=== PATIENT | male | born 1960 | race Caucasian/White ===

== ENCOUNTER 2019-08-03 13:29 | Inpatient (IN) | payer OTHER, BC ==
[~2019-08-03] VITALS: Ht 177.8 cm; Wt 76.4 kg
[2019-08-03] VITALS (13 sets, daily range): BP systolic 114–166; BP diastolic 62–99
[~2019-08-03 13:29] MED LIST: BAYER CHEWABLE81 MG PO; CELEXA20 MG PO; DONEPEZIL HCL 55 M1 PO; LIPITOR 20 MG T20 M1 PO; PRILOSEC 20 MG20 MG PO; RITALIN20 MG PO
[2019-08-03 14:13] LABS: ABSOLUTE NEUTROPHILS 7.1 thou/uL (1.4-8.2); BASOPHILS 0.4 % (0.0-2.0); EOSINOPHILS 2.8 % (0.0-3.0); HEMATOCRIT 41.5 % (42.0-52.0); HEMOGLOBIN 13.8 gm/dL (14.0-18.0); LYMPHOCYTES 11.6 % (24.0-44.0); MCH 29.8 pg (26.0-34.0); MCHC 33.2 g/dL (28.0-37.0); MCV 89.8 fL (80.0-100.0); MONOCYTES 4.1 % (1.0-8.0); PLATELET COUNT 300 thou/uL (150-400); POLYS 81.1 % (36.0-66.0); RBC 4.62 mil/uL (4.50-6.00); RDW 13.8 % (10.5-14.5); WBC 8.7 thou/uL (4.0-11.0)
[2019-08-03 14:18] LABS: URINE BILIRUBIN NEGATIVE (Negative); URINE BLOOD NEGATIVE (Negative); URINE CLARITY CLEAR; URINE COLOR YELLOW; URINE GLUCOSE-RANDOM* NEGATIVE (Negative); URINE KETONES NEGATIVE (Negative); URINE LEUKOCYTES-REFLEX NEGATIVE (Negative); URINE NITRITE-REFLEX NEGATIVE (Negative); URINE PROTEIN (DIPSTICK) TRACE (Negative); URINE SPECIFIC GRAVITY >= 1.030 (1.005-1.035); URINE UROBILINOGEN 0.2 E.U./dl (0.2-1.0)
[2019-08-03 14:19] LABS: BE(vivo) -0.3 mmol/L (-2 to +3); HCO3 22.7 mmol/L (22.0-26.0); pH 7.456 (7.360-7.450); sO2 96.8 % (92.0-98.0)
[2019-08-03 14:21] LABS: ANION GAP 15 mmol/L (7-16); BUN 11 mg/dL (7-18); CALCIUM 9.2 mg/dL (8.5-10.1); CHLORIDE 102 mmol/L (98-107); CO2 22 mmol/L (21-32); CREATININE 0.9 mg/dL (0.7-1.3); GLUCOSE 117 mg/dL (74-106); POTASSIUM 3.9 mmol/L (3.5-5.1); SODIUM 139 mmol/L (136-145)
[2019-08-03 14:24] LABS: APTT 22.2 Seconds (24.5-32.8); PROTIME 10.5 Seconds (9.3-11.4)
[2019-08-03 14:30] LABS: ALBUMIN 3.3 g/dL (3.4-5.0); SGOT 25 U/L (15-37); SGPT 22 U/L (30-65); TOTAL BILIRUBIN 0.6 mg/dL (<0.1-1.0); TROPONIN-I <0.06 ng/mL (<0.06)
[2019-08-03] MEDS ORDERED: LIPITOR 20 MG T20 M1 PO ×2 (14:38→15:34)
[2019-08-03] MEDS ORDERED: DULCOLAX10 MG RECTAL (14:40)
[2019-08-03] MEDS ORDERED: ARICEPT10 M1 PO (14:50)
[2019-08-03] MEDS ORDERED: ERYTHROMYCIN E3.5 G3 OPHTHALMIC (14:55)
[2019-08-03] MEDS ORDERED: LIDODERM1 EACH TOP (14:56)
[2019-08-03] MEDS ORDERED: IPRAT-ALBUT 0.5-3 ML INH (14:56)
[2019-08-03] MEDS ORDERED: NAMENDA 10 MG T10 MG PO (14:57)
[2019-08-03] MEDS ORDERED: MELATONIN3 M1 PO (14:57)
[2019-08-03] MEDS ORDERED: MUCINEX600 MG PO (14:57)
[2019-08-03] MEDS ORDERED: MIRALAX119 GM PO (15:01)
[2019-08-03] MEDS ORDERED: QUETIAPINE FUMA50 MG PO (15:02)
[2019-08-03] MEDS ORDERED: VITAMIN B-1100 M2 PO (15:04)
[2019-08-03] MEDS ORDERED: ROBITUSSIN-COU237 ML PO (15:04)
[2019-08-03] MEDS ORDERED: TRAMADOL 50 MG50 MG PO (15:09)
[2019-08-03] MEDS ORDERED: ZYRTEC10 M5 PO (15:33)
[2019-08-03] MEDS ORDERED: HALOPERIDOL 1 MG1 MG PO (15:35)
--- NOTE | 2019-08-03 19:19 | NUR ---
1845 PT RECEIVED FROM ED HERE AT THE BEDSIDE, SETTLED AND REPORTED OFF TO PM RN.
[2019-08-04] VITALS (12 sets, daily range): BP systolic 104–142; BP diastolic 53–89
--- NOTE | 2019-08-04 06:10 | NUR ---
PATIENT ALERT TO SELF ONLY, CONSTANT RE-ORIENTATION NEEDED. PATIENT AGITATED DURING BEGINNING OF THE SHIFT, ROCKS SELF BACK AND FOWARD WITH LEGS ELEVATED. PATIENT REASSURED, HOME MEDICATION ORDERED AND PATIENT RESTED THROUGHOUT THE NIGHT. ON 2L NASAL CANNULA, O2 SAT REMAINED ABOVE 92%, NON-PRODUCTIVE COUGH NOTED. PRESSENT AT THE BEDSIDE TO ANSWER ADMISSION QUESTIONS. STATED PATIENT TRIPPED AND LANDED ON PIANO FACE FRONT WHERE HE RECIEVED SURGERY IN THE PAST WITH RIGHT FACIAL PLATES. PATIENT SEES NEUROLOGIST AT , DEMENTIA NOTED TO BE EXACERBATED WITH INCREASED ROCKING MOVEMENTS AFTER THE PIANO INCIDENT. PATIENT HAS PEG TUBE IN PLACE, STATED IT HASN'T BEEN USED IN 2 DAYS AND PATIENT WAS EATING REGULAR FOOD. CURRENTLY NPO, AWAITING SPEECH EVALUATION. CHEST X-RAY COMPLETED THIS MORNING, CONTINUED IV ANTIBIOTICS. NO SIGN OF ACUTE DISTRESS NOTED AT THIS TIME. WILL CONTINUE TO MONITOR.
[2019-08-04 06:12] LABS: HEMATOCRIT 39.3 % (42.0-52.0); HEMOGLOBIN 12.9 gm/dL (14.0-18.0); MCH 29.3 pg (26.0-34.0); MCHC 32.8 g/dL (28.0-37.0); MCV 89.4 fL (80.0-100.0); RBC 4.4 mil/uL (4.50-6.00); RDW 13.7 % (10.5-14.5); WBC 12.4 thou/uL (4.0-11.0)
[2019-08-04 06:19] LABS: CALCIUM 9.2 mg/dL (8.5-10.1); CREATININE 0.9 mg/dL (0.7-1.3); POTASSIUM 3.5 mmol/L (3.5-5.1)
--- NOTE | 2019-08-04 18:33 | NUR ---
PT ASSESSMENTS DOCUMENTED. VSS. VERY RESTLEST, ANXIOUS AND CONFUSED. PER THIS IS BASELINE. PRN MEDICATIONS GIVEN. SITTER INITIATED FOR SAFETY DUE TO IMPULSIVENESS AND INABILITY TO FOLLOW COMMANDS. AND DAUGHTERS AT BEDSIDE THROUH OUT THE DAY. IV ABX. ABLE TO TITRATE OFF OXYGEN. MAINTAINING SATS. MULTIPLE EPISDOES OF INCONTINANCE. ORDERS FOR MST TRANSFER.
[2019-08-05] VITALS: BP 114/75
--- NOTE | 2019-08-05 04:32 | NUR ---
ASSESSMENTS CHARTED. MEDS GIVEN CHARTED. PATIENT REMAINS RESTLESS WITH NON-PRODUCTIVE COUGH. VISUAL HALLUCINATIONS ALERT TO NAME. SINUS ANNE-MARIE TO SINUS TACH ON TELEMETRY. LUNGS ARE COARSE ON ROOM AIR. INCONTINENT OF BLADDER, SCROTAL REDNESS, BARRIER CREAM APPLIED. IV FLUIDS RUNNING DURING SHIFT. SITTER IN ROOM WITH PATIENT. FALL PRECAUTIONS IN PLACE. PLAN OF CARE IS TO CONTINUE ANTIBIOTIC TREATMENT.
[2019-08-05 06:51] LABS: CALCIUM 9.1 mg/dL (8.5-10.1); CREATININE 0.6 mg/dL (0.7-1.3)
[2019-08-05 08:38] VITALS: BP 139/65
[2019-08-05 16:01] VITALS: BP 140/74
--- NOTE | 2019-08-05 19:32 | NUR ---
0800 PT PERSISTANT COUGH-AISSATOU SAN-ORDER RECEIVED. AFTER PROMETHAZINE, CODIENE, FENTANYL, ATIVAN AND LIDOCAINE INH-PT ABLE TO SLEEP FROM [id number] WITH COUGH CONTROLLED. 1600 PT INCONTINENT OF URINE, PT TURNED CLEAN, RN NOTICED PEG TUBE IN BED. REQUEST IT BE LEFT OUT UNLESS NECESSARY, WANTS NURSE TO PAGE AND BEN MEDS TO BE CRUSHED AND GIVEN WITH APPLESAUCE. ORDERS RECEIVED FROM TRACIE TO GIVE MEDS CRUSHED WITH APPLESAUCE. INTERMITTENT AGGITATION THROUGHOUT DAY-EASILY REDIRECTED. AGREES WITH CURRENT POC-UPDATED ON ALL MEDS AND RESULTS.
[2019-08-05 19:57] VITALS: BP 140/52
[2019-08-06] VITALS: BP 127/49
[2019-08-06 04:06] VITALS: BP 151/65
[2019-08-06 05:49] LABS: CALCIUM 8.9 mg/dL (8.5-10.1); CREATININE 0.7 mg/dL (0.7-1.3)
[2019-08-06 05:50] LABS: POTASSIUM 3.8 mmol/L (3.5-5.1)
[2019-08-06 08:01] VITALS: BP 149/56
--- NOTE | 2019-08-06 10:10 | NUR ---
Nutrition: pt admit to ICU with respiratory distress. Seen due to NPO day 3 and hx of PEG which has been pulled out. requests not replacing as pt had been eating regular foods 2 days prior to admit. Hx PEG due to need for oromaxillofacial surgery/dysphagia per chart. No weight hx available. ST is evaluating pt this am. Hx dementia and per rounds currently confused and impulsive. Will follow for results of ST cannon.
--- NOTE | 2019-08-06 15:43 | NUR ---
1312 pt in bed, 1:1 sitter with , yelling out. chart review. will reach out to . cm spoke with pt , he been in and out of [facility] since may. he was independent prior to may, he was able to stay home by him self, and would walk the dogs. has peg tub, walker and wheel chair. rehab at [facility]. he will return [facility] rehab when dr are ready to dc. thank you for calling"/becky rodriguez [phone]
[2019-08-06 16:00] VITALS: BP 149/62
--- NOTE | 2019-08-06 17:24 | NUR ---
PT RESTED IN BED TOSSING AND TURNING AND WITH INCOMPREHENSIBLE SOUNDS. PT REMAINS I TO 1 SITTER. PT HAD FREQUENT WET ADDISON. SPOUSE AT BEDISDE AT THIS TIME AND PT IS PROGRESSING TOWARDS GOALS.
[2019-08-06 19:11] VITALS: BP 172/86
[2019-08-06 20:54] VITALS: BP 165/69
[2019-08-07 03:16] VITALS: BP 189/60
--- NOTE | 2019-08-07 05:36 | NUR ---
Assumed pt care at 08/06 @ 1900. Pt initially agitated, occasionally combative and consistently attempting to sit up out of bed, swinging legs over sides. Medicated per EMAR and pt has slept well for some periods. HR initially low 100s, 50s while sleeping. Has remained on RA with adequate SPO2. Took HS meds with honey thick liquids by the spoonful, coughing noted after small spoonfulls sitting up right in bed. PEG site ALEKSANDR with no drainage noted. Plan for possible PEG placement today. Bed low and locked with bed alarm on and sitter at bedside for pt safety. Progressing slowly towards goals.
[2019-08-07 07:45] VITALS: BP 189/60
--- NOTE | 2019-08-07 08:51 | NUR ---
SCD'S REMAIN OFF,PT CONSTANT MOTION,WILL NOT KEEP WRAPS ON WHEN APPLIED.COVERED W LOVENOX.SEVERLY AGITATED.--VW
--- NOTE | 2019-08-07 10:29 | NUR ---
Nutrition: If PEG tube replaced, REC jevity 1.5 to run at 55 mL/hr goal rate.
[2019-08-07 13:37] VITALS: BP 156/82
--- NOTE | 2019-08-07 14:56 | NUR ---
FAXED CLINICAL UPDATE TO [facility] SPOKE WITH SHANTHI IN ADM SHE RECEIVED UPDATE. DP TO FOLLOW.
[2019-08-07 16:48] VITALS: BP 164/72
--- NOTE | 2019-08-07 18:20 | NUR ---
PATIENT ADMITTED TO ROOM AT THIS TIME. AT BEDSIDE.. NOTED TO BE RESTLESS IN BED. NOT EASILY REDIRECTED. ORDERS FOR ZYPREXA NOTED. WILL DISCUSS WITH DR SANTIAGO IF IM ZYPREXA WILL BE PREFERABLE. WILL CONT WITH PLAN OF CARE.
[2019-08-07 20:19] VITALS: BP 136/73
--- NOTE | 2019-08-07 23:37 | NUR ---
PT REMAINS ON 1 ON . PT RESTING IN BED, MAKING INTERMITTENT GROANING NOISES AND COUGHING INTERMITTENTLY. PT RESTLESS IN BED ROCKING UP AND BACK, KICKING LETS OUT AND IN. KEEPS EYES CLOSED. BUT ABLE TO FOLLOW VERBAL DIRECTIONS WHEN ASKED TO OPEN EYES OR LOWER LEGS. IVF INTACT. REMAINS INCONTINENT. NO VERBALIZATIONS. HR IN 100S UNTIL ASLEEP THEN DOWN TO 50S.
[2019-08-08 00:20] VITALS: BP 123/72
[2019-08-08 03:48] VITALS: BP 130/92
--- NOTE | 2019-08-08 06:43 | NUR ---
PT AWAKENED RESTLESS, KICKING LEGS , SITTING UP TRYING TO GET OUT OF BED, CRYING AND MOANING, ASKING FOR CANDY, PT IS NPO. VERBAL REDIRECTION NOT EFFECTIVE, DISTRACTION NOT EFFECTIVE, PRN PROVIDED.
[2019-08-08 09:45] VITALS: BP 156/74
--- NOTE | 2019-08-08 12:21 | NUR ---
SW reviewed chart and spoke with nursing and attending physician. Pt was transferred to from ICU. Pt has 1:1 sitter at bedside. Psych following. Pt to have peg tube replaced today. Plan is for pt to discharge back to [facility] once sitter has been discontinued for 24 hours. SW is following to assist as needed with discharge planning.
--- NOTE | 2019-08-08 12:32 | EKG ---
[facility] [place] [address] ELECTROCARDIOGRAM REPORT Name: HOLGER GLORIA Room #: 361-P [facility] IN M.R.#: [id number] Admission: 08/03/19 Attend Phys: Usama Soto MD Discharge: 08/11/19 Date of : 58 Report #: [id number] THIS REPORT FOR: cc: Rogelio Sandoval David J. DO Lundgren, Craig H. MD [facility] THIS REPORT FOR: //name// [facility] ED Test Date: 2019-08-03 Test Time: 14:00:10 Pat Name: HOLGER GLORIA Department: Room: [facility] Gender: M Wireless Manager: SHERINE : 1960 Requested By: Isma Hansen Order Number: [id number] MD: Jasvir Cabrera Measurements Intervals [place] Rate: 110 P: 77 CT: 130 QRS: -2 QRSD: 111 T: 70 QT: 324 QTc: 439 Interpretive Statements Sinus tachycardia RSR' in V1 or V2, right VCD No previous ECG available for comparison Electronically Signed On 08-03-2019 17:32:46 ROUGH AND TRUING MACHINE OPERATOR by Jasvir Cabrera [email or web address] <ELECTRONICALLY SIGNED> By: Jasvir Cabrera MD, FACC 08/03/19 1732 1400 1400 Jasvir Cabrera MD, [facility] /EPI
[2019-08-08 15:33] VITALS: BP 153/99
--- NOTE | 2019-08-08 18:30 | NUR ---
PATIENT HAD NG TUBED REPLACED IN IR THIS AFTERNOON. CALLED CUSTODIAL TO SEE WHAT KIND OF FEEDING HE WAS ON. NO ONE ANSWERED AFTER THREE TRIES. ORDERS PUT IN FOR DIETITIAN TO START TUBE FEEDS IN AM. CONT ON 1:1 HE KEEPS ROLLING IN THE BED FROM SIDE TO SIDE AND QUIT AGITATIVE. WILL CONT WITH PLAN OF CARE.
[2019-08-08 19:25] VITALS: BP 149/72
[2019-08-09 04:20] VITALS: BP 136/69
--- NOTE | 2019-08-09 06:39 | NUR ---
FOUND DIETARY ORDER FOR PT TUBE FEEDING JEVITY 1.5 AT 55ml/HR, BUT HELD OFF DUE TO BRAND NEW INSERTION OF THE PEG TUBE YESTERDAY AND SCHEDULED PROCEDURES THIS AM. WILL AWAIT ORDERS TO RESTART FEEDINGS AND. PICKLING GRADER WAS REMOVED AT 2300. PT CALLS OUT AND HAS A LOUD COUGH. PT HAD TO EPISODES OF URINE INCONTINENCE. PT NPO. VSS AND TELE SHOWS SR.
[2019-08-09 07:35] VITALS: BP 148/90
[2019-08-09 08:37] LABS: HEMATOCRIT 42.7 % (42.0-52.0); HEMOGLOBIN 13.8 gm/dL (14.0-18.0); MCH 28.6 pg (26.0-34.0); MCHC 32.3 g/dL (28.0-37.0); MCV 88.5 fL (80.0-100.0); RBC 4.82 mil/uL (4.50-6.00); RDW 13.8 % (10.5-14.5); WBC 9.8 thou/uL (4.0-11.0)
[2019-08-09 08:40] LABS: CALCIUM 9.1 mg/dL (8.5-10.1); CREATININE 0.9 mg/dL (0.7-1.3)
--- NOTE | 2019-08-09 08:58 | NUR ---
TUBE FEEDING RECS: 1) When safe to feed via PEG, recommend Jevity 1.5 @ starting rate of 25ml/hr. 2) Do NOT recommend any advancements for the first 24 hrs, given prolonged NPO status x 5-6 days. 3) After 24 hrs at 25 ml/hr, recommend gradually increasing by 15 ml q 12 hrs thereafter to Goal Rate of 55 ml/hr. 4) Recommend close monitoring of K+, Mag, Phos in initial days as pt at higher risk of refeeding syndrome. 5) Recommend 150 ml water flushes q 4 hrs, plus 30 ml before/after any meds.
--- NOTE | 2019-08-09 10:54 | NUR ---
Nutrition update: Communicated RD tube feeding recommendations to pt's RN in room this morning. See note titled 'Dietitian Recommendations' for further TF details. RN aware of low potassium per daily labs, she added on a mag level too. Mag slightly high at 2.5. Suggested checking phos next time too.
[2019-08-09 15:57] VITALS: BP 161/66
--- NOTE | 2019-08-09 16:58 | NUR ---
DESTINI reviewed chart and spoke with nursing and attending physician. Pt had peg tube placed yesterday. Tube feeding started. 1:1 sitter discontinued last night. Discharge back to [facility] is anticipated for tomorrow. DESTINI updated Elva at [facility]. DESTINI is following to assist as needed with discharge planning.
--- NOTE | 2019-08-09 18:32 | NUR ---
pt still is confused , and he cannot follow commands, pt 's vs are astble at this time, pt has medications for agitation and pain, pt is high fall risk, pt has started tube feeding 25ml/hr at 1330pm, pt is tolerated, pt's tube feeding has increased to 30ml/hr at 1730pm, pt is continuing IV abx and iv fluid,RN will report to next shift to keep eye on pt.
[2019-08-09 19:45] VITALS: BP 147/73
[2019-08-10 04:46] VITALS: BP 116/70
[2019-08-10 05:32] LABS: ALBUMIN 2.8 g/dL (3.4-5.0); CALCIUM 8.4 mg/dL (8.5-10.1); CREATININE 0.9 mg/dL (0.7-1.3); MAGNESIUM 2.3 mg/dL (1.8-2.4); PHOSPHORUS 4.1 mg/dL (2.5-4.9); POTASSIUM 3.2 mmol/L (3.5-5.1); TOTAL BILIRUBIN 0.5 mg/dL (<0.1-1.0); TOTAL PROTEIN 6.5 g/dL (6.4-8.2)
[2019-08-10 07:35] VITALS: BP 129/102
--- NOTE | 2019-08-10 07:48 | NUR ---
PATIENT IS ADVANCING SLOWLY IN HIS CARE PLAN. VITAL SIGNS STABLE WITH NURSE NOT PERCEIVING AND NAUSEA BEHALF OF PATIENT. NURSE DID PERCEIVE ABDOMINAL PAIN ON BEHALF OF PATIENT. HE IS DISORIENTED AND AGITATED AT TIMES. BREATHING STABLE ON ROOM AIR EVIDENCED BY ASSESSMENT AND SPOT OXYGENATION CHECKS. PATIENT FREQUENTLY CHECKED AND CLEANED FOR INCONTINENCE. CONTINUE PLAN OF CARE.
[2019-08-10] MEDS ORDERED: AUGMENTIN600 MG/5 M PO (15:05)
[2019-08-10] MEDS ORDERED: LORAZEPAM 0.50.5 MG PER TUBE (15:05)
[2019-08-10] MEDS ORDERED: OMEPRAZOLE 20 M20 M1 PER TUBE (15:05)
[2019-08-10] MEDS ORDERED: DEPAKOTE 250MG250 M1 PO (15:05)
[2019-08-10] MEDS ORDERED: NEURONTIN250 MG/5 M PER TUBE (15:05)
[2019-08-10 16:11] VITALS: BP 177/89
--- NOTE | 2019-08-10 16:40 | NUR ---
DESTINI reviewed chart and spoke with nursing and attending physician. Pt is progressing towards goals for discharge. Discharge back to [facility] SN[facility] is anticipated for tomorrow. DESTINI spoke with pt's , Tita, via phone to provide update. Pt's is aware and in agreement with discharge plan. Pt's requests to speak with attending physician prior to discharge. DESTINI provided pt's 's cell phone number to attending physician. DESTINI spoke with Zulay at [facility], who states they are able to accept pt tomorrow. DESTINI faxed discharge ppwk today. Nursing to fax finalized discharge orders/summary tomorrow. Stretcher van/Ambulance transportation will need to be arranged. Nursing will need to call report. SW is available to assist should needs arise. [facility] (w/c or stretcher van)-- [facility] (Ambulance)--
[2019-08-10 19:27] VITALS: BP 134/75
--- NOTE | 2019-08-10 19:55 | NUR ---
pt still is confused, and impulsive at time, pt is high fall risk, pt is tolerated tube feeding to 55ml/hr ( goal ) , pt's vs are stable, pt may DC to SNF tomorrow, RN has called all consults for pt is ok to DC .RN has reported to next shift to keep eye on pt.
--- NOTE | 2019-08-11 02:24 | NUR ---
ASSESSMENT: PT REMAINS ALERT TIMES 1-2, CONFUSED TO PLACE, TIME AND SITUATION. DOES SAY THANK YOU, AND RESPONDS TO NAME. VSS, AFEBRILE. SR PER MONITOR. MINIMAL SUCIONING, GOOD COUGH BUT CAN'T CLEAR SECRETIONS. JEVITY INFUSING WITHOUT DIFFICULTY. POSSIBLE DC TO [facility]. TUBE PATENT AND INYTACT. SLEPY MOST OF THE NIGHT, SLOW PROGRESS, TOWARDS DC GOALS, WILL CONTINUE TO MONITOR.
[2019-08-11 04:33] VITALS: BP 138/82
[2019-08-11 07:22] VITALS: BP 95/63
[2019-08-11 10:44] LABS: ABSOLUTE NEUTROPHILS 5.2 thou/uL (1.4-8.2); BASOPHILS 0.4 % (0.0-2.0); HEMATOCRIT 39.7 % (42.0-52.0); HEMOGLOBIN 13.2 gm/dL (14.0-18.0); MCH 29.3 pg (26.0-34.0); MCHC 33.1 g/dL (28.0-37.0); MCV 88.3 fL (80.0-100.0); MONOCYTES 5.7 % (1.0-8.0); PLATELET COUNT 308 thou/uL (150-400); POLYS 66.9 % (36.0-66.0); RBC 4.49 mil/uL (4.50-6.00); RDW 13.6 % (10.5-14.5); WBC 7.7 thou/uL (4.0-11.0)
[2019-08-11] MEDS ORDERED: ZYPREXA5 MG PO (11:34)
[2019-08-11 15:40] VITALS: BP 146/90
--- NOTE | 2019-08-11 16:32 | NUR ---
ASSUMED PATIENT CARE AT 0700. AWAKE. ROCK ON THE BED. TF STOPED AT 1600. INCONTIUNE ON BED. VSS. WILL DC TO SNF AT 1700. SLOWLY TOWARDS POC GOALS.
== END 2019-08-11 17:56 | DRG 871 ==
LOC: ER 13:29 → ICU 16:21 → EROBS 16:21 → 3W 16:21 → ICU 18:38 → 3W 08-07 17:52
PROVIDERS: Emergency Medicine; Internal Medicine Pulmonary Disease; Psychiatry & Neurology Psychiatry; ADMIT Hospitalist
PROC: 0DH63UZ Insertion of Feeding Device into Stomach, Percutaneous Approach (ICD-10-PCS; principal; 2019-08-08)
DX: A41.9 Sepsis, unspecified organism (principal); J96.01 Acute respiratory failure with hypoxia; J69.0 Pneumonitis due to inhalation of food and vomit; G92 Toxic encephalopathy; E44.0 Moderate protein-calorie malnutrition; F03.91 Unspecified dementia, unspecified severity, with behavioral disturbance; K94.23 Gastrostomy malfunction; E87.6 Hypokalemia; T38.0X5A Adverse effect of glucocorticoids and synthetic analogues, initial encounter; Y83.3 Surgical operation with formation of external stoma as the cause of abnormal reaction of the patient, or of later complication, without mention of misadventure at the time of the procedure; Z91.81 History of falling; Z80.1 Family history of malignant neoplasm of trachea, bronchus and lung; Z68.24 Body mass index [BMI] 24.0-24.9, adult; Z88.2 Allergy status to sulfonamides; Z79.899 Other long term (current) drug therapy; Z87.891 Personal history of nicotine dependence; Y92.89 Other specified places as the place of occurrence of the external cause
CPT/HCPCS: 10078; 10203; 10879

== ENCOUNTER 2019-08-12 09:47 | Inpatient (IN) | payer OTHER, BC ==
[2019-08-12] VITALS (26 sets, daily range): BP systolic 92–159; BP diastolic 47–100
[~2019-08-12] VITALS: Ht 177.8 cm; Wt 75.3 kg
[~2019-08-12 09:47] MED LIST changes: +ARICEPT10 M1 PO; +AUGMENTIN600 MG/5 M PO; +DEPAKOTE 250MG250 M1 PO; +DULCOLAX10 MG RECTAL; +ERYTHROMYCIN E3.5 G3 OPHTHALMIC; +HALOPERIDOL 1 MG1 MG PO; +IPRAT-ALBUT 0.5-3 ML INH; +LIDODERM1 EACH TOP; +LORAZEPAM 0.50.5 MG PER TUBE; +MELATONIN3 M1 PO; +MIRALAX119 GM PO; +MUCINEX600 MG PO; +NAMENDA 10 MG T10 MG PO; +NEURONTIN250 MG/5 M PER TUBE; +OMEPRAZOLE 20 M20 M1 PER TUBE; +QUETIAPINE FUMA50 MG PO; +ROBITUSSIN-COU237 ML PO; +TRAMADOL 50 MG50 MG PO; +VITAMIN B-1100 M2 PO; +ZYPREXA5 MG PO; +ZYRTEC10 M5 PO
[2019-08-12 10:08] LABS: HEMATOCRIT 46.4 % (42.0-52.0); HEMOGLOBIN 15.1 gm/dL (14.0-18.0); MCHC 32.6 g/dL (28.0-37.0); PLATELET COUNT 523 thou/uL (150-400); RBC 5.21 mil/uL (4.50-6.00); RDW 13.7 % (10.5-14.5); WBC 22.4 thou/uL (4.0-11.0)
[2019-08-12 10:15] LABS: ANION GAP 15 mmol/L (7-16); BUN 10 mg/dL (7-18); CALCIUM 9.2 mg/dL (8.5-10.1); CHLORIDE 101 mmol/L (98-107); CO2 21 mmol/L (21-32); GLUCOSE 106 mg/dL (74-106); SODIUM 137 mmol/L (136-145)
[2019-08-12 10:18] LABS: POTASSIUM 4.4 mmol/L (3.5-5.1)
[2019-08-12 10:20] LABS: HCO3 18.5 mmol/L (22.0-26.0); PCO2 VENOUS 27.8 mmHg (41.0-51.0); PO2 VENOUS 45.8 mmHg (35.0-45.0)
[2019-08-12 10:25] LABS: ALBUMIN 3.5 g/dL (3.4-5.0); SGOT 26 U/L (15-37); SGPT 19 U/L (30-65); TROPONIN-I <0.06 ng/mL (<0.06)
[2019-08-12 10:55] LABS: ABSOLUTE NEUTROPHILS 19.5 thou/uL (1.4-8.2)
[2019-08-12 10:56] LABS: ANISOCYTOSIS SLIGHT
--- NOTE | 2019-08-12 16:51 | NUR ---
PT WITH SEVER DEMENTIA, SPOUSE ORIENTED TO ROOM 15 IN ER HOLDING. PT WILL BE ICU STATUS AFTER ASSESSMENT BY DR. ORTEGA. BED LOW AND LOCKED, SIDE RAILS UPX3, CALL LIGHT IN REACH. PT ON MONITOR AT THIS TIME AND IS A BEDSIDE. WILL CONTINUE TO ASSESS.
--- NOTE | 2019-08-12 18:07 | NUR ---
PICC LINE BEING PLACED AND ONCE COMPLETE WILL TRANSFER PT TO ICU AND REMIAN PT'S NURSE.
--- NOTE | 2019-08-12 18:26 | NUR ---
VAT CONSULTED TO ER FOR A PICC FOR SEPSIS, POSS ASPIRATION, VANCO, ZOSYN, IVF, ETC. ORDERED. PER HOSPITAL P&P A 5FRTLPICC PLACED IN RUABASILIC WITH THE TIP CONFIRMED AT THE [facility].
--- NOTE | 2019-08-12 18:49 | NUR ---
PT TRNASFERED TO ROOM 239.
[2019-08-12 19:06] LABS: TSH 2.432 uIU/mL (0.358-3.740)
[2019-08-12 19:28] LABS: APTT 30.1 Seconds (24.5-32.8); FIBRINOGEN 505.1 mg/dL (210-360); INR 1.1; PROTIME 11.3 Seconds (9.3-11.4)
[2019-08-12 19:37] LABS: CALCIUM 8.4 mg/dL (8.5-10.1); CREATININE 0.8 mg/dL (0.7-1.3)
[2019-08-12 19:42] LABS: FOLIC ACID 34.8 ng/mL (8.6-58.9)
[2019-08-12 23:17] LABS: CALCIUM 8.5 mg/dL (8.5-10.1); CREATININE 0.6 mg/dL (0.7-1.3); POTASSIUM 3.9 mmol/L (3.5-5.1)
[2019-08-13] VITALS (62 sets, daily range): BP systolic 91–179; BP diastolic 52–127
[2019-08-13 05:34] LABS: ABSOLUTE NEUTROPHILS 11.7 thou/uL (1.4-8.2); BASOPHILS 0.2 % (0.0-2.0); EOSINOPHILS 1.8 % (0.0-3.0); HEMATOCRIT 34.7 % (42.0-52.0); LYMPHOCYTES 6.1 % (24.0-44.0); MCH 29.2 pg (26.0-34.0); MCHC 33.2 g/dL (28.0-37.0); MONOCYTES 3.4 % (1.0-8.0); PLATELET COUNT 230 thou/uL (150-400); POLYS 88.5 % (36.0-66.0); RBC 3.94 mil/uL (4.50-6.00); WBC 13.2 thou/uL (4.0-11.0)
[2019-08-13 05:56] LABS: HEMOGLOBIN 11.5 gm/dL (14.0-18.0)
[2019-08-13 05:59] LABS: CALCIUM 8.2 mg/dL (8.5-10.1); CREATININE 0.7 mg/dL (0.7-1.3); POTASSIUM 3.4 mmol/L (3.5-5.1)
--- NOTE | 2019-08-13 08:00 | EKG ---
[facility] [place] [address] ELECTROCARDIOGRAM REPORT Name: HOLGER GLORIA Room #: 239-P ADM IN M.R.#: [id number] Admission: 08/12/19 Attend Phys: Moni Oakes MD Discharge: Date of : 58 Report #: [id number] THIS REPORT FOR: cc: Rogelio Sandoval David J. DO Lundgren, Craig H. MD [facility] ~ THIS REPORT FOR: //name// [facility] ED Test Date: 2019-08-12 Test Time: 13:30:34 Pat Name: HOLGER GLORIA Department: Room: 239 Gender: M Emergency Registrar: ZENON : 1960 Requested By: Hiro Doherty Order Number: [id number] MD: Jasvir Cabrera Measurements Intervals [place] Rate: 90 P: 59 NE: 140 QRS: -12 QRSD: 91 T: 76 QT: 372 QTc: 455 Interpretive Statements Sinus rhythm RSR' in V1 or V2, right VCD Borderline T abnormalities, anterior leads No previous ECG available for comparison Electronically Signed On 08-13-2019 7:59:49 MORTGAGE UNDERWRITER by Jasvir Cabrera [email or web address] <ELECTRONICALLY SIGNED> By: Jasvir Cabrera MD, [facility] 08/13/19 0759 1330 1330 Jasvir Cabrera MD, [facility] /EPI
--- NOTE | 2019-08-13 08:00 | NUR ---
chart review, noted pt yelling, out, moaning, coughing, kicking up and down his legs. cm and bedside nurse tried to reposition him up higher in bed and he cont to scoot down. he is in wrist restraints. fr her and pt received anointing of the sick. resp here and pt getting tx. cm sent message to MD to check on pt. not at bedside. cm called and left her becky a message. pt just dc last week back to his facility of [facility] where he as been off and on since may when he went to the rehab and then back and forth to hospital. pt was unable to follow direction. he has bed, wheel chair, on peg tube feeding. will cont following as needed for dc needs.
--- NOTE | 2019-08-13 09:30 | NUR ---
When PEG ready to use, recommend jevity 1.5 goal of 55ml/hr
--- NOTE | 2019-08-13 17:33 | NUR ---
ASSESSMENTS AND INTERVENTIONS DOCCUMENTED. PATIENT AGITATED DURING SHIFT CHANGE. PATIENT HAVING AN INCREASE IN HEART RATE AND BLOOD PRESSURE. DR JALEN SAN, ORDERS RECIEVED. PATIENT CONTINUOUSLY ATTEMPTING TO SLIDE OUT OF BED. RN TRYING TO REORIENT PATIENT. AT BEDSIDE EDUCATED ON CURRENT TREATMENTS, LABS AND MEDICATIONS. EXPRESSING UNDERSTANDING. DR. SANTIAGO ROUNDING NO NEW ORDERS RECIEVED. PATIENT BECOOMMING INCREASINGLY AAGITATED. DR. RAO PAGED ORDERS RECIEVED. DAUGHTER AT BEDSIDE AND UPDATED. PATIENT MUCH MORE CALM AND RESTING AFTER MEDICATION GIVEN. PATIENT CONTINUES TO HAVE A PRODUCTIVE COUGH. PATIENT PRGRESSING TOWARDS GOALS EVIDENCE BY A DECREASE IN WBC AND LACTIC ACID.
[2019-08-13 19:04] LABS: CALCIUM 8.4 mg/dL (8.5-10.1); CREATININE 0.7 mg/dL (0.7-1.3); POTASSIUM 3.2 mmol/L (3.5-5.1)
[2019-08-14] VITALS (24 sets, daily range): BP systolic 100–157; BP diastolic 57–105
[2019-08-14 00:51] LABS: URINE BILIRUBIN NEGATIVE (Negative); URINE BLOOD 3+ (Negative); URINE CLARITY CLEAR; URINE COLOR YELLOW; URINE GLUCOSE-RANDOM* NEGATIVE (Negative); URINE KETONES 2+ (Negative); URINE LEUKOCYTES TRACE (Negative); URINE NITRITE NEGATIVE (Negative); URINE PROTEIN (DIPSTICK) NEGATIVE (Negative); URINE UROBILINOGEN 0.2 E.U./dl (0.2-1.0)
[2019-08-14 01:03] LABS: BACTERIA 1-9 Few /HPF (None Seen); CASTS None Seen /LPF (None Seen); CRYSTALS None Seen /LPF (None Seen); MUCUS 0-3 Light strn/LPF (None Seen); SQUAMOUS 0-3 Few /LPF (0-3); URINE WBC 0-5 Rare /HPF (0-5)
[2019-08-14 05:25] LABS: ABSOLUTE NEUTROPHILS 6.8 thou/uL (1.4-8.2); HEMATOCRIT 33.6 % (42.0-52.0); HEMOGLOBIN 11.2 gm/dL (14.0-18.0); LYMPHOCYTES 12.2 % (24.0-44.0); MCH 29.3 pg (26.0-34.0); MCHC 33.2 g/dL (28.0-37.0); MCV 88.1 fL (80.0-100.0); MONOCYTES 5.8 % (1.0-8.0); PLATELET COUNT 194 thou/uL (150-400); RBC 3.81 mil/uL (4.50-6.00); RDW 13.9 % (10.5-14.5); WBC 8.6 thou/uL (4.0-11.0)
[2019-08-14 05:58] LABS: CALCIUM 8.2 mg/dL (8.5-10.1); CREATININE 0.6 mg/dL (0.7-1.3); POTASSIUM 3.4 mmol/L (3.5-5.1)
[2019-08-14 07:10] LABS: HIV ANTIBODY Non Reactive (Non Reactive)
--- NOTE | 2019-08-14 07:42 | NUR ---
ASSUMED PT CARE AT 1900. VSS. PT LETHARGIC, MAKES INCOMPREHENSIBLE SOUNDS. 02 TIRATED DOWN TO 2L. K WAS 3.2 LAST NOC WAS WAS REPLACED WITH 2 BAGS OF KCL. PT HAD OVER 1000ML URINE OUTPUT. AFEBRILE, PT IS STABLE AND SLOWLY PROGESSING TOWARDS POC GOALS.
--- NOTE | 2019-08-14 10:07 | HC ---
[facility] [place] [address] CONSULTATION Name: HOLGER GLORIA Room #: 239-P [facility] IN .R.#: [id number] Admission: 08/12/19 Attend Phys: Moni Oakes MD Discharge: Date of : 58 Report #: [id number] THIS REPORT FOR: cc: Rogelio Sandoval David J. DO Geha, Daniel J. MD ~ CC: Rogelio Oakes DATE OF SERVICE: 08/13/2019 INFECTIOUS DISEASE CONSULTATION REASON FOR CONSULTATION: I was asked to evaluate concerning healthcare-associated pneumonia and sepsis. HISTORY OF PRESENT ILLNESS: A 59-year-old with underlying history of dementia who was hospitalized on 08/03/2019 at [facility] with respiratory failure due to suspected aspiration pneumonia. He was more agitated. Following this hospitalization, he was placed on IV antibiotic therapy. Blood culture showed contaminant. Sputum showed normal stef. He was treated with antibiotic therapy. He failed a video swallow and a PEG tube was placed. PEG tube was dislodged and required replacement. By 08/11/2019, he was discharged back to [facility] unit for further care. Last evening, he developed further respiratory distress and fever. He has been more delirious. Unable to communicate. Brought into the Emergency room and hospitalized in the ICU. The patient was unable to give any details. He just moans and coughs. He was on oxygen per nasal cannula at 4 liters. He had no sputum production or hemoptysis. He did not report any chest pain. There was no evidence of trauma. He has a PEG tube, which is not being utilized at this time. Now, he has an indwelling Ross catheter. IV has been placed for treatment. Remains in 2-point restraints. REVIEW OF SYSTEMS: 14-point review was negative other than what has been described above. ALLERGIES: SULFA. MEDICATIONS: As noted on his MAR including Prilosec, aspirin, Ritalin, Celexa, donepezil, Lipitor, now vancomycin and Unasyn. PAST MEDICAL AND SURGICAL HISTORY: Dementia, depression, gastroesophageal reflux and bilateral arthroscopic knee surgery. FAMILY HISTORY: Lung cancer. [facility] [address] [place] [address] CONSULTATION Name: HOLGER GLORIA Room #: 239-P [facility] IN .R.#: [id number] Admission: 08/12/19 Attend Phys: Moni Oakes MD Discharge: Date of : 58 Report #: [id number] SOCIAL HISTORY: Past smoker. Uses alcohol, no drug use. No HIV risk. PHYSICAL EXAMINATION: VITAL SIGNS: Temperature 99 degrees, heart rate 100, blood pressure 136/80. GENERAL: He was lying in bed, moaning and coughing without sputum production. In 2-point restraints. SKIN: With evidence of phlebitis in the left forearm. Surrounding erythema. No palpable adenopathy. HEENT: Eyes without scleral icterus. Mouth was dry without lesion. NECK: Supple. LUNGS: Few crackles in the right base posteriorly with no consolidation. HEART: Regular without murmur, gallop or rub. NECK: Supple, with no thyromegaly or mass. ABDOMEN: Soft, nontender, no hepatosplenomegaly or mass. PICC site is without erythema, swelling or tenderness. GENITOURINARY: External genitalia without mass or lesion ____. Rectal examination was not performed. EXTREMITIES: Without clubbing, cyanosis or edema. Able to move all 4 extremities. Right upper extremity PICC without erythema or drainage. NEUROLOGIC: Cranial nerves appeared intact. He was not following commands, however. Mental status, delirious. LABORATORY: Reviewed. MICROBIOLOGY: Reviewed. IMAGING: Chest x-ray reviewed. CT scan of the head, chest and abdomen reviewed. IMPRESSION: A 59-year-old with underlying dementia presents with delirium, right lower lobe pneumonia, suspecting healthcare-associated aspiration. So far no other evidence of underlying infectious etiology. This would explain his leukocytosis. With underlying dementia and agitation, I doubt we are dealing with primary COMPRESS ENGINEER infection. CT scan showed no evidence of gross abnormality. He does have left upper extremity phlebitis. RECOMMENDATIONS: We will continue antibiotic coverage for healthcare-associated organisms. Await blood cultures. Obtain sputum culture, urinalysis and urine culture. We will follow in the Intensive Care Unit with full support. Discussed with the nursing staff at the bedside. <ELECTRONICALLY SIGNED> By: Isma Hsieh MD 08/14/19 1007 1231 2235 Isma Hsieh MD /nt
--- NOTE | 2019-08-14 17:00 | NUR ---
PT NON VERBAL, MOANS OUT TO VOICES, VITALS SIGNS STABLE, AT BEDSIDE TODAY, REVIEWED KARU NOTE WITH HER, TUBEFEEDING, MEDICATIONS AND ANTIBIOTIC ORDERS. AGREES WITH POC. NO NEW QUESTIONS, WILL RETURN TOMORROW.
[2019-08-14 22:06] LABS: CALCIUM 8.7 mg/dL (8.5-10.1); CREATININE 0.7 mg/dL (0.7-1.3); POTASSIUM 3.1 mmol/L (3.5-5.1)
[2019-08-15] VITALS (17 sets, daily range): BP systolic 91–164; BP diastolic 54–85
[2019-08-15 06:16] LABS: CALCIUM 8.5 mg/dL (8.5-10.1); CREATININE 0.6 mg/dL (0.7-1.3); POTASSIUM 3.4 mmol/L (3.5-5.1)
--- NOTE | 2019-08-15 06:40 | NUR ---
CONFUSED. DIDN'T TALK DURING THE NIGHT. PT MOANED, GROANED AND SCREAM DURING THE NIGHT. ATIVAN GIVEN X1. VSS. AFEBRILE. GUO REPLACED, PREVIOUS GUO WAS LEAKING. ELECTROLYTE REPLACED. PT NOT PROGRESSING TOWARDS GOALS DUE TO MENTATION. WILL CONTINUE TO MONITOR.
--- NOTE | 2019-08-15 14:51 | NUR ---
FAXED CLINICAL UPDATE TO [facility] SPOKE WITH SHANTHI IN ADM SHE RECEIVED UPDATE. DP TO FOLLOW.
--- NOTE | 2019-08-15 19:07 | NUR ---
PT REMAINS DROWSY, YELLS OUT OCCASIONALLY WHEN STIMULATED, SUCTIONED AIRWAY WHEN NEEDED, MODERATE AMOUNT OF THICK SECRETIONS IN AIRWAY. REVIEWED POC WITH ALAYNA AT BEDSIDE, NEW MED ORDERS, TUBE FEEDING ORDERS AND NEW ANTIBIOTIC ORDERS. AGREES WITH PLAN OF CARE.
[2019-08-16 00:13] VITALS: BP 122/75
[2019-08-16 00:51] VITALS: BP 104/61
[2019-08-16 03:30] VITALS: BP 97/61
[2019-08-16 04:00] VITALS: BP 105/62
--- NOTE | 2019-08-16 11:03 | NUR ---
Nutrition: REC advance tube feeds to goal 55 mL/hr
--- NOTE | 2019-08-16 11:49 | NUR ---
PT'S HERE THIS AM AND REQUESTED THAT THE CATHETER BE REMOVED BECAUSE SHE FELT IT WAS CAUSING THE PT PAIN. PT VERY RESTLESS IN BED AND CONSTANTLY KICKING LEGS UP AND DOWN IN BED AND TRYING TO PULL AT CATHETER WITH SOFT WRIST RESTRAINTS IN PLACE. CRITICAL CARE ON UNIT AND WAS NOTIFIED THAT THE WANTS THE CATHETER OUT. THE DR STATED HE FELT IT WAS NEEDED AT THIS TIME AND GAVE ORDER FOR RN TO FLUSH CATHETER. ORDER FOR LIMITED US OF ABD PLACED. GUO CATHETER BAG HAD URINE FROM PREVIOUS SHIFT IN BAG BUT DID NOT APPEAR TO BE DRAINING AT THIS TIME. US SHOWED CATHETER NEEDED TO BE ADVANCED TO BE IN THE BLADDER. RN AND DESIGN PRINTING MACHINE SETTER UNABLE TO ADVANCE CURRENT CATHETER AND NEW CATHETER HAD TO BE PLACE. URINE RETURN UPON PLACEMENT AND CONFIRMED BY US THAT TIP WAS IN BLADDER. SMALL AMOUNT OF BLOODY DRAINAGE PRESENT AT REINSERTION. LEFT AND WENT TO WORK LEAVING PHONE NUMBER ON BOARD. HOSPITALIST ROUNDED AND STATED HE WANTED GUO CATHETER REMOVED AND BILAT SOFT WRIST RESTRAINTS REMOVED IF PT NOT PULLING AT MEDICAL DEVICES. DR MADE AWARE THAT CRITICAL CARE WANTED GUO LEFT IN. HOSPITALIST STATED HE IS PRIMARY AND WANTS IT REMOVED. CRITICAL CARE DR NOTIFIED OF NEW ORDER AND STATED TO MAKE SURE PT IS ABLE TO VOID ON HIS OWN. RESTRAINTS AND GUO REMOVED AT 1000. PT STILL VERY AGITATED AND KICKING LEGS BUT DOES NOT APPEAR TO BE PULLING AT ANYTHING AT THIS TIME.
--- NOTE | 2019-08-16 16:35 | NUR ---
PT HAS VOIDED X2 POST CATHETER D/C. PT IS INCONTINENT OF URINE.
[2019-08-16 20:00] VITALS: BP 90/62
[2019-08-17] VITALS: BP 100/67
[2019-08-17 04:00] VITALS: BP 118/58
--- NOTE | 2019-08-17 05:21 | NUR ---
PT WRESTLESS AND THRASHING HIS LEGS AT START OF SHIFT THEN CALM AND RESTING WITH ONLY A FEW TIMES OF THRASHING, MOANS AND YELLS OUT SPORATICLY, TF TOLERATED AT GOAL OF 55 WITH ONLY 10ML RESIDUAL, INCON'T OF URINE WITH BLOOD AND CLOTS ALSO NOTED WHEN VOIDING, REMAINS NSR VSS, FLUIDS INFUSING IN R UPPER PICC, REPOSOTIONED NEEDED, WILL CON'T TO MONITOR PER PPOC.
[2019-08-17 08:00] VITALS: BP 112/83
--- NOTE | 2019-08-17 10:25 | NUR ---
esperanza notified by bedside nurse, that just left and she said she doesnt feel that [facility] is going to be able to care for him anymore. ready to dc. cm tried calling [phone], left message. pt might have to go back to [facility] and have sw at facility assist with moving him to another [facility] facility if she has not already found on. will cont following as needed. pt is out of restraints yesterday and [facility] was dc yesterday. will cont following as needed for dc needs.
[2019-08-17 12:00] VITALS: BP 113/65
[2019-08-17 14:50] VITALS: BP 123/66
--- NOTE | 2019-08-17 17:30 | NUR ---
ASSESSMENT CHARTED. PT RESTLESS THIS SHIFT. PRN ATIVAN GIVEN. VSS. CHANGED AND REPOSITIONED NEED. HAD THREE LOSE STOOL THIS SHIFT. UPDATED ON PTS PROGRESS. TUBE FEEDING INFUSING @ 55ML/HR. ORDERS GIVEN TO TRANSFER PT TO CCU ROOM 203. WILL CONTINUE TO MONITOR.
[2019-08-17 20:24] VITALS: BP 100/72
[2019-08-18] VITALS: BP 101/71
[2019-08-18 01:00] VITALS: BP 147/67
[2019-08-18 03:48] VITALS: BP 109/56
[2019-08-18 03:59] VITALS: BP 109/56
--- NOTE | 2019-08-18 05:02 | NUR ---
PT ASLEEP MOST OF THE NIGHT. NO EVENTS. VSS. PERIODIC MOANING WHILE TRYING TO CLEAR HIS THROUGHT. . Q2 TURNS. ORAL CARE PRN. INCONTINENT. NO BLOOD NOTED IN URINE. NO FURTHER DISCTRESS NOTED. WILL CONTINUE TO MONITOR.
[2019-08-18 08:00] VITALS: BP 110/79
[2019-08-18 10:07] LABS: ADENOVIRUS Negative (Negative); INFLUENZA A Negative (Negative); INFLUENZA B Negative (Negative); METAPNEUMOVIRUS Negative (Negative); PARAINFLUENZA 1 Negative (Negative); PARAINFLUENZA 2 Negative (Negative); PARAINFLUENZA 3 Negative (Negative); RHINOVIRUS Positive (Negative); RSV A Negative (Negative); RSV B Negative (Negative)
[2019-08-18 11:40] VITALS: BP 147/85
[2019-08-18] MEDS ORDERED: SEROQUEL 50 MG50 MG PER TUBE (12:13)
[2019-08-18] MEDS ORDERED: SEROQUEL 100 M100 M1 PER TUBE ×2 (12:13)
[2019-08-18] MEDS ORDERED: NYSTATIN100000 UNI SW&SWALLOW (13:09)
--- NOTE | 2019-08-18 16:02 | NUR ---
DR RAO IN TO SEE PT, PT'S AT SIDE, TRANSFER SET UP, REPORT CALLED TO TARA AT [facility], VERBALIZED UNDERSTANDING OF TRANSFER, REVIEWED MEDS, DR RAO ORDERED NYSTATIN SWISH AND SWALLOW PER 'S REQUEST. PICC LINE PULLED BY STEFANIA VAZQUEZ, BLADDER SCAN DONE PER DR RAO'S REQUEST. 37CC RESIDUAL URINE, PT INCONTINENT, BRIEF PUT ON, PT PICKED UP BY NON-ER AMBULANCE, TRANSFERED TO [facility].
== END 2019-08-18 14:44 | DRG 871 ==
LOC: ER 09:47 → EROBS 16:11 → ICU 16:11 → EROBS 16:16 → ICU 18:19 → 2N 08-17 18:43
PROVIDERS: Emergency Medicine; Internal Medicine Pulmonary Disease; Specialist; ADMIT Internal Medicine
PROC: 02H633Z Insertion of Infusion Device into Right Atrium, Percutaneous Approach (ICD-10-PCS; principal; 2019-08-12)
DX: A41.9 Sepsis, unspecified organism (principal); J69.0 Pneumonitis due to inhalation of food and vomit; J96.01 Acute respiratory failure with hypoxia; G92 Toxic encephalopathy; E46 Unspecified protein-calorie malnutrition; F03.91 Unspecified dementia, unspecified severity, with behavioral disturbance; Z51.5 Encounter for palliative care; K21.9 Gastro-esophageal reflux disease without esophagitis; F32.9 Major depressive disorder, single episode, unspecified; Z79.82 Long term (current) use of aspirin; Z79.899 Other long term (current) drug therapy; Z88.1 Allergy status to other antibiotic agents; Z88.2 Allergy status to sulfonamides; Z80.1 Family history of malignant neoplasm of trachea, bronchus and lung; Z87.891 Personal history of nicotine dependence; Z68.23 Body mass index [BMI] 23.0-23.9, adult
CPT/HCPCS: 10078; 10081; 10203; 27000

== ENCOUNTER 2019-10-06 15:40 | Emergency (ER) | payer OTHER, BC ==
[~2019-10-06] VITALS: Ht 177.8 cm; Wt 77.1 kg
[~2019-10-06 15:40] MED LIST changes: +NYSTATIN100000 UNI SW&SWALLOW; +SEROQUEL 100 M100 M1 PER TUBE; +SEROQUEL 50 MG50 MG PER TUBE
[2019-10-06 16:03] LABS: ABSOLUTE NEUTROPHILS 4.1 thou/uL (1.4-8.2); BASOPHILS 0.5 % (0.0-2.0); HEMATOCRIT 42.4 % (42.0-52.0); HEMOGLOBIN 14.1 gm/dL (14.0-18.0); LYMPHOCYTES 20.2 % (24.0-44.0); MCH 28.1 pg (26.0-34.0); MCHC 33.2 g/dL (28.0-37.0); MCV 84.5 fL (80.0-100.0); MONOCYTES 8.4 % (1.0-8.0); PLATELET COUNT 256 thou/uL (150-400); POLYS 67.9 % (36.0-66.0); RBC 5.02 mil/uL (4.50-6.00); RDW 14.6 % (10.5-14.5); WBC 6.1 thou/uL (4.0-11.0)
[2019-10-06 16:12] LABS: CREATININE 0.7 mg/dL (0.7-1.3); POTASSIUM 4.2 mmol/L (3.5-5.1)
[2019-10-06 16:13] LABS: URINE BILIRUBIN NEGATIVE (Negative); URINE BLOOD NEGATIVE (Negative); URINE CLARITY SL CLOUDY; URINE COLOR YELLOW; URINE GLUCOSE-RANDOM* NEGATIVE (Negative); URINE KETONES NEGATIVE (Negative); URINE LEUKOCYTES-REFLEX NEGATIVE (Negative); URINE NITRITE-REFLEX NEGATIVE (Negative); URINE PROTEIN (DIPSTICK) NEGATIVE (Negative); URINE SPECIFIC GRAVITY 1.015 (1.005-1.035)
[2019-10-06 16:18] LABS: ALBUMIN 3.3 g/dL (3.4-5.0); TOTAL BILIRUBIN 0.5 mg/dL (<0.1-1.0); TOTAL PROTEIN 7.1 g/dL (6.4-8.2)
[2019-10-06] MEDS ORDERED: ALBUTEROL2.5 MG/31 INH ×2 (17:12)
[2019-10-06] MEDS ORDERED: AZITHROMYC200 MG/52 PO ×2 (17:38)
[2019-10-06 18:55] VITALS: BP 125/76
--- NOTE | 2019-10-07 13:06 | EKG ---
[facility] [place] [address] ELECTROCARDIOGRAM REPORT Name: HOLGER GLORIA Room #: DEP [facility]#: [id number] Admission: 10/06/19 Attend Phys: Discharge: 10/06/19 Date of : 58 Report #: [id number] THIS REPORT FOR: cc: Rogelio Sandoval David J. DO Couchonnal, Luis F. MD ~ THIS REPORT FOR: //name// [facility] ED Test Date: 2019-10-06 Test Time: 15:53:17 Pat Name: HOLGER GLORIA Department: Room: Gender: Application Trainer: [facility] : 1960 Requested By: Bridgett Delaney Order Number: [id number] : Brian Navarrete Measurements Intervals [place] Rate: 92 P: 75 SC: 141 QRS: -21 QRSD: 93 T: 74 QT: 349 QTc: 432 Interpretive Statements Sinus rhythm Borderline left axis deviation Low voltage, extremity leads Compared to ECG 08/12/2019 13:30:34 Low QRS voltage now present T-wave abnormality no longer present Electronically Signed On 10-07-2019 13:05:23 CDT by Brian Navarrete [email or web address] <ELECTRONICALLY SIGNED> By: Brian Navarrete MD 10/07/19 1305 1553 1553 Brian Navarrete MD /EPI
== END 2019-10-06 19:12 | disposition home or self-care (01) ==
LOC: ER 15:40
PROVIDERS: Emergency Medicine Emergency Medical Services
DX: R50.9 Fever, unspecified (principal); K21.9 Gastro-esophageal reflux disease without esophagitis; F17.210 Nicotine dependence, cigarettes, uncomplicated; Z03.818 Encounter for observation for suspected exposure to other biological agents ruled out; Z79.899 Other long term (current) drug therapy; Z79.82 Long term (current) use of aspirin; Z88.2 Allergy status to sulfonamides

== ENCOUNTER 2019-10-06 20:13 | Inpatient (IN) | payer OTHER, BC ==
[~2019-10-06] VITALS: Ht 177.8 cm; Wt 72.8 kg
[~2019-10-06 20:13] MED LIST changes: +ALBUTEROL2.5 MG/31 INH; +AZITHROMYC200 MG/52 PO
[2019-10-06 20:14] VITALS: BP 160/80
[2019-10-06 22:10] VITALS: BP 160/80
[2019-10-06 22:34] VITALS: BP 160/80
[2019-10-06 23:34] VITALS: BP 143/96
[2019-10-07 03:40] VITALS: BP 144/81
[2019-10-07 04:15] LABS: HEMATOCRIT 42.2 % (42.0-52.0); HEMOGLOBIN 14.1 gm/dL (14.0-18.0); MCH 28.5 pg (26.0-34.0); MCHC 33.4 g/dL (28.0-37.0); MCV 85.2 fL (80.0-100.0); RBC 4.95 mil/uL (4.50-6.00); RDW 14.1 % (10.5-14.5); WBC 6.6 thou/uL (4.0-11.0)
[2019-10-07 04:28] LABS: CALCIUM 9.6 mg/dL (8.5-10.1); CREATININE 0.8 mg/dL (0.7-1.3); POTASSIUM 3.8 mmol/L (3.5-5.1)
--- NOTE | 2019-10-07 05:25 | NUR ---
PTWAS A ER ADMIT LAST NIGHT AABOUT 2330. PT IS NONE VERBAL AND HAS NONVOLUNTARY LE MOVEMENTS CONSTANTLY. NO CORRECTION PAPERWORK CAME WITH PATIENT ON THE UNIT. NO SKIN ISSUES. UNABLE TO COMPLETE ADMISSION; PREVIOUS ADMISSION UTILIZED. PT DOES NOT APPEAR TO BE IN ANY DISTRESS. INCONTINENT . 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 VSS. ON ROOM AIR, O2 SATS STABLE. NO FURTHER CONCERNS AT THIS POINT. WILL CONTINUE TO MONITOR AND FOLLOW POC WHILE WAITING COVID RESULTS.
[2019-10-07 08:00] VITALS: BP 148/83
[2019-10-07 17:14] VITALS: BP 131/99
--- NOTE | 2019-10-07 18:50 | NUR ---
Alert, disoriented. tube feeding tolerated well. no fever, vss. lab reviewed.
[2019-10-07 20:48] VITALS: BP 147/73
--- NOTE | 2019-10-08 01:23 | NUR ---
ASSUMED CARE AT 1900. PT RESTLESS IN HIS BED. CONSTANTLY MOVING HIS LE. FALL PRECAUTION IN PLACE. RECEIVE COVID RESULT NEGATIVE. PT SWABBED FOR THE SECOND TIME SINCE HE IS FROM A PRISON. TUBE FEEDING MAINTAINED AT 45ML/HR. NS AT 100ML/HR. CHANGE OF CARE REPORT GIVEN TO RN AT 0120. PT CURRENTLY STABLE.
[2019-10-08 04:28] VITALS: BP 153/86
--- NOTE | 2019-10-08 05:18 | NUR ---
Patient making slow progress towards outcome goals. COVID negative x 1/repeat testing done 10/07 per [facility] policy. Vital signs stable. IVfluids infusing. High fall risks, very figity in bed requiring frquent repositioning. Incontinent of bowel and bladder. External male catheter in place.
[2019-10-08 09:00] VITALS: BP 140/90
--- NOTE | 2019-10-08 13:02 | NUR ---
INITIAL ASSESSMENT/DISCHARGE NOTE: SW reviewed chart and spoke with nursing and attending physician. Pt was admitted from [facility] to r/o COVID-19. Pt was sent to the ER over the weekend. Pt was febrile. Pt was in the ER and sent back to [facility]. Staff at the facility was unwilling to accept pt back unless he had a negative COVID test. Pt is medically stable for discharge back to [facility] today. landscape architect and planner faxed updates and discharge ppwk to the facility. Ambulance to be scheduled between 0017-1690 today. DESTINI spoke with pt's , Tita, via phone. Introduced role of SW. Pt's is aware and agreeable with discharge plan. Chart copy requested. Nursing to call report. No additional SW needs identified at this time, but is available to assist should needs arise.
--- NOTE | 2019-10-08 13:47 | NUR ---
PT DISCHARGING BACK TO [facility] FAXED DC ORDERS/SUMMARY TO FACILITY SPOKE WITH SHANTHI IN ADM SHE RECEIVED ORDERS. TRANSPORT ARRANGED BY AMBULANCE ([facility]) FOR [phone] TODAY. NOTIFIED BY DESTINI (JASON) AND UNIT NOTIFIED. RN TO CALL REPORT TO [phone].
--- NOTE | 2019-10-08 14:04 | NUR ---
PT IS UNVERBAL AND PT IS CONFUSTION, PT CANNOT FOLLOW COMMANDS, PT'S VS AND O2SAT ARE STABLE , PT DOES NOT HAVE SOB AT THIS TIME, PT IS TOLERATED TUBE FEEDING AT 45ML/HR, RN HAS RECEIVED DR ORDER TO DC PT TO SNF , RN HAS GIVING REPORTED TO SNF, AMBULANCE WILL SERICULTURIST PT AT 1430-1500PM,PT'S HAS NOTIFED ABOUT PT BACK TO SNF.
== END 2019-10-08 15:00 | DRG 177 ==
LOC: ER 20:13 → EROBS 22:07 → 3W 22:07
PROVIDERS: Nurse Practitioner Family; ADMIT Hospitalist
DX: J69.0 Pneumonitis due to inhalation of food and vomit (principal); J96.21 Acute and chronic respiratory failure with hypoxia; R47.01 Aphasia; F03.90 Unspecified dementia, unspecified severity, without behavioral disturbance, psychotic disturbance, mood disturbance, and anxiety; K21.9 Gastro-esophageal reflux disease without esophagitis; Z20.828 Contact with and (suspected) exposure to other viral communicable diseases; F32.9 Major depressive disorder, single episode, unspecified; Z79.2 Long term (current) use of antibiotics; Z79.899 Other long term (current) drug therapy; Z88.2 Allergy status to sulfonamides; Z87.891 Personal history of nicotine dependence; Z79.82 Long term (current) use of aspirin
CPT/HCPCS: 10080

== ENCOUNTER 2020-01-25 13:55 | Emergency (ER) | payer OTHER, BC ==
[~2020-01-25] VITALS: Ht 182.9 cm; Wt 70.8 kg
--- NOTE | ~2020-01-25 | EMS ---
[address] [address] EMS Patient Care Report Name: HOLGER GLORIA Room #: REG MESSI [place]#: [id number] Admission: 01/25/20 Attend Phys: Discharge: Date of : 58 Report #: [id number] THIS REPORT FOR: //name// Report Transmitted: 01/25/2020 15:16 EMS Care Summary [place], [place]/[facility] Incident [id number] @ 01/25/2020 13:10 Incident Location [id number] [place] [address] [address] Patient HOLGER GLORIA Male, 59 Years 1960 Patient Address [id number] [place] [address] [address] [place] [address] Patient History Dementia,Stroke/CVA,Pneumonia, Chief Complaint Generalized weakness Disposition Transported No Lights/[place] Dispatch Reason Transfer/Interfacility/Palliative Care Transported To [facility] Narrative 59 y/o male with weakness. On arrival found pt sitting in chair in front lobby of [place] with staff on scene. Staff stated they had advised pt's about his health decline and suggested that he be placed on hospice. Staff stated did not want pt put on hospice instead she wanted the pt taken to [facility] for evaluation. EMS transferred pt to stretcher and into ambulance. [facility] [address] [place] [address] EMS Patient Care Report Name: HOLGER GLORIA Room #: REG MESSI [place]#: [id number] Admission: 01/25/20 Attend Phys: Discharge: Date of : 58 Report #: [id number] EMS monitored pt/VS en route to [facility] ED. Transferred care of pt to [facility] ED RN without incident. Initial Vitals @13:48P: 55,SpO2: 91, @13:39P: 63,R: 20,BP: 115/71,Pain: 0/10,GCS: 11,SpO2: 90,Revised Trauma: 11, Assessments @13:30MENTAL:Other,SKIN:No Abnormalities,HEENT:Head/Face: No Abnormalities,Eyes: No Abnormalities,Neck/Airway: No Abnormalities,LUNG SOUNDS:General: No Abnormalities,Left Upper: No Abnormalities,Right Upper: No Abnormalities,Left Lower: No Abnormalities,Right Lower: No Abnormalities,ABDOMEN:General: No Abnormalities,Left Upper: No Abnormalities,Right Upper: No Abnormalities,Left Lower: No Abnormalities,Right Lower: No Abnormalities,PELVIS//GI:No Abnormalities,EXTREMITIES:Capillary Refill: Left Upper: < 2 Sec,Left Arm: No Abnormalities,Right Arm: No Abnormalities,Left Leg: No Abnormalities,Right Leg: No Abnormalities,PULSE:Radial: 2+ Normal,NEURO:No Abnormalities, Impression Generalized Weakness Procedures @13:30ALS AssessmentResponse: UnchangedSucceeded@PTAOxygen FlowRate: 4 Device: Nasal Cannula (NC) Response: UnchangedSucceeded Timeline INSTRUCTIONAL ASSISTANT,Oxygen FlowRate: 4 Device: Nasal Cannula (NC) Response: UnchangedSucceeded, 12:38,Call Received 12:38,Dispatch Notified 13:10,Dispatched 13:11,En Route 13:25,On Scene 13:30,At Patient 13:30,ALS Assessment,Response: UnchangedSucceeded, 13:39,BP: 115/71 M,PULSE: 63,RR: 20 R,SPO2: 90 Ox,ETCO2: ,BG: ,PAIN: 0,GCS: 11, 13:43,Depart Scene 13:48,BP: / M,PULSE: 55,RR: R,SPO2: 91 Ox,ETCO2: ,BG: ,PAIN: ,GCS: , 13:51,At Destination 14:06,Call Closed Disclaimer v1.1 Copyright 2020 [employer] This EMS Care Summary contains data elements from the applicable legal record (which may be displayed differently). It is designed to provide pertinent [address] [address] EMS Patient Care Report Name: HOLGER GLORIA Room #: REG Seng#: [id number] Admission: 01/25/20 Attend Phys: Discharge: Date of : 58 Report #: [id number] information for the following purposes: continuity of care, clinical quality, and state data reporting. The complete legal record is available to ED staff and administrators of the receiving hospital in [employer]'s Patient Tracker. All data is provided "as is."
[2020-01-25 15:11] LABS: BASOPHILS 0.2 % (0.0-2.0); EOSINOPHILS 1.9 % (0.0-3.0); HEMATOCRIT 35.6 % (42.0-52.0); LYMPHOCYTES 13.8 % (24.0-44.0); MCHC 33.8 g/dL (28.0-37.0); MONOCYTES 7.6 % (1.0-8.0); PLATELET COUNT 232 thou/uL (150-400); POLYS 76.5 % (36.0-66.0); RBC 4.14 mil/uL (4.50-6.00); WBC 6.5 thou/uL (4.0-11.0)
[2020-01-25 15:21] LABS: ANION GAP 6 mmol/L (7-16); BUN 13 mg/dL (7-18); CALCIUM 9.3 mg/dL (8.5-10.1); CHLORIDE 100 mmol/L (98-107); CO2 33 mmol/L (21-32); CREATININE 0.8 mg/dL (0.7-1.3); GLUCOSE 90 mg/dL (74-106); POTASSIUM 4.2 mmol/L (3.5-5.1); SODIUM 139 mmol/L (136-145)
[2020-01-25 15:31] LABS: ALBUMIN 2.8 g/dL (3.4-5.0); MAGNESIUM 2.1 mg/dL (1.8-2.4); SGOT 23 U/L (15-37); SGPT 15 U/L (30-65); TOTAL BILIRUBIN 0.4 mg/dL (0.2-1.0); TOTAL PROTEIN 7.4 g/dL (6.4-8.2); TROPONIN-I <0.06 ng/mL (<0.06)
[2020-01-25 17:03] LABS: URINE BILIRUBIN NEGATIVE (Negative); URINE BLOOD NEGATIVE (Negative); URINE CLARITY CLEAR; URINE COLOR YELLOW; URINE GLUCOSE-RANDOM* NEGATIVE (Negative); URINE KETONES NEGATIVE (Negative); URINE LEUKOCYTES-REFLEX NEGATIVE (Negative); URINE NITRITE-REFLEX NEGATIVE (Negative); URINE PROTEIN (DIPSTICK) NEGATIVE (Negative)
[2020-01-25 18:03] VITALS: BP 112/70
--- NOTE | 2020-01-26 10:50 | EKG ---
[facility] [place] [address] ELECTROCARDIOGRAM REPORT Name: HOLGER GLORIA Room #: DEP [facility]#: [id number] Admission: 01/25/20 Attend Phys: Discharge: 01/25/20 Date of : 58 Report #: [id number] THIS REPORT FOR: cc: Aiden,Yelena Maldonado,Yelena Unger,Jasvir Conte MD 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 /EPI
== END 2020-01-25 18:10 ==
LOC: ER 13:55
PROVIDERS: Emergency Medicine
DX: F03.90 Unspecified dementia, unspecified severity, without behavioral disturbance, psychotic disturbance, mood disturbance, and anxiety (principal); R41.82 Altered mental status, unspecified; K21.9 Gastro-esophageal reflux disease without esophagitis; E11.9 Type 2 diabetes mellitus without complications; E78.5 Hyperlipidemia, unspecified; Z87.891 Personal history of nicotine dependence; Z79.82 Long term (current) use of aspirin; Z79.899 Other long term (current) drug therapy; Z88.2 Allergy status to sulfonamides; Z86.73 Personal history of transient ischemic attack (TIA), and cerebral infarction without residual deficits